=== PATIENT | male | born 1990 | race Caucasian/White ===

== ENCOUNTER 2017-07-17 09:03 | Emergency (ER) | payer OTHER ==
[~2017-07-17] VITALS: Ht 182.9 cm; Wt 138.8 kg
[2017-07-17] MEDS ORDERED: LISINOPRIL10 MG PO (09:14)
[2017-07-17] MEDS ORDERED: ADVIL200 M1 PO (09:15)
[2017-07-17] MEDS ORDERED: MUCINEX600 MG PO (09:15)
[2017-07-17 09:35] LABS: ABSOLUTE BASOPHILS 0.1 thou/uL (0.0-0.2); ABSOLUTE EOSINOPHILS 0.7 thou/uL (0.0-0.7); ABSOLUTE LYMPHOCYTES 1.7 thou/uL (0.8-5.3); ABSOLUTE MONOCYTES 0.7 thou/uL (0.0-1.2); ABSOLUTE NEUTROPHILS 8.5 thou/uL (1.6-8.1); BASOPHILS 0.6 %; EOSINOPHILS 5.9 %; HEMATOCRIT 47.3 % (42.0-52.0); HEMOGLOBIN 16.4 gm/dL (14.0-18.0); LYMPHOCYTES 14.7 %; MCHC 34.6 g/dL (28.0-37.0); MCV 86.8 fL (80.0-100.0); MONOCYTES 6.4 %; MPV 7.9 fl. (7.2-11.1); NUCLEATED RBCS 0 /100WBC; PLATELET COUNT* 273 thou/uL (150-400); POLYS 72.4 %; RBC 5.45 mil/uL (4.50-6.00); RDW-CV 12.7 % (10.5-14.5); WBC 11.7 thou/uL (4.0-11.0)
[2017-07-17 09:43] LABS: CALCIUM 9.1 mg/dL (8.5-10.1); CREATININE 1.1 mg/dL (0.6-1.3); POTASSIUM 4.3 mmol/L (3.5-5.1)
[2017-07-17 09:47] LABS: ALBUMIN 4.1 g/dL (3.4-5.0); TOTAL BILIRUBIN 0.7 mg/dL (<0.1-1.0); TOTAL PROTEIN 8.5 g/dL (6.4-8.2)
[2017-07-17] MEDS ORDERED: PREDNISONE 20 M20 M1 PO (10:00)
[2017-07-17] MEDS ORDERED: VENTOLIN HFA 1818 GM INH (10:00)
[2017-07-17 10:21] VITALS: BP 130/92
--- NOTE | 2017-07-18 14:32 | EKG ---
[place] [address] ELECTROCARDIOGRAM REPORT Name: KATHIA SHUKLA Room: [facility], [place]#: [id number] Admission: 07/17/17 Attend Phys: Discharge: 07/17/17 Date of : [birth year] Report #: [id number] THIS REPORT FOR: //name// [facility] ED Test Date: 2017-07-17 Test Time: 09:09:21 Pat Name: KATHIA SHUKLA Department: Room: Gender: M [employer]: : 1990 Requested By: Yonas Greenberg Order Number: [id number] MD: Suhsant Josue Measurements Intervals [place] Rate: 121 P: 66 NE: 139 QRS: 65 QRSD: 95 T: -14 QT: 305 QTc: 433 Interpretive Statements Sinus tachycardia Nonspecific T wave abnormalities No previous ECG available for comparison Electronically Signed On 07-18-2017 14:31:57 CDT by Sushant Josue [email or web address] <ELECTRONICALLY SIGNED> By: Sushant Josue MD, [facility] 07/18/17 1431 [id number] 8 Sushant Josue MD, FACC /EPI
== END 2017-07-17 10:23 | disposition home or self-care (01) ==
LOC: M.ERS 09:03
PROVIDERS: Family Medicine
DX: J45.901 Unspecified asthma with (acute) exacerbation (principal)